=== PATIENT | female | born 1950 | race Two or more races ===

== ENCOUNTER 2024-04-12 11:04 | Inpatient (IN) | payer OTHER ==
[~2024-04-12] VITALS: Ht 142.2 cm; Wt 59.9 kg
[2024-04-12] VITALS (10 sets, daily range): BP systolic 139–182; BP diastolic 58–94; O2SAT 100
--- NOTE | 2024-04-12 11:06 | NUR ---
1106- SE RECIBE PACIENTE EN AMBULANCIA EN MADAN~IA DEL DR. ROMERO REDCTO POR SOB [place] DE [place]ONNY CIRUGIA ANTROSPCOPIA DE HOMBRO DERECHO POR LA DRA. CARLTON FERNANDEZ EN [facility]. SE UBICA EN CUBICULO 1 EN CAMA POSICION SEMISENTADA Y SE COLOCA MONITOR CARDIACO. NR MASK AL 100%.
[2024-04-12 11:24] LABS: BASE EXCESS -5.9 mmol/l; BICARBONATE 25.7 mmol/l (23-25); SaO2 94.8 %; Tco2 28.2 mmol/l
[2024-04-12 11:30] LABS: ABG PH 7.114 (7.35-7.45)
[2024-04-12 11:31] LABS: ABG pCO2 81.9 mmHg (35-45); allen test SATISFACTORY; o2 100 %; puncture site RADIAL RIGHT
[2024-04-12 11:38] LABS: HEMATOCRIT 34.9 % (36.0-45.00); HEMOGLOBIN 11.5 g/dL (12.0-15.00); MEAN CELL VOLUME 92.8 fL (80.00-100.00); MEAN CORPUSCULAR HEMOGLOBIN 30.5 pg (27.00-32.0); MEAN CORPUSCULAR HGB CONC 32.9 g/dl (32.0-36.0); PLATELET COUNT 346 K/uL (150-450); RED BLOOD COUNT 3.76 M/uL (4.00-6.00); RED CELL DISTRIBUTION WIDTH 15.7 % (11.5-14.5)
[2024-04-12] MEDS ORDERED: METOPROLOL SUCC25 MG (11:40)
[2024-04-12] MEDS ORDERED: SERTRALINE HCL50 MG (11:40)
[2024-04-12] MEDS ORDERED: SYNTHROID88 MCG (11:40)
[2024-04-12] MEDS ORDERED: OLOPATADINE HC2.5 ML (11:40)
[2024-04-12] MEDS ORDERED: ATORVASTATIN CA20 MG (11:41)
[2024-04-12] MEDS ORDERED: CLOPIDOGREL BIS75 MG (11:41)
[2024-04-12] MEDS ORDERED: NIFEDIPINE ER60 M1 (11:41)
[2024-04-12] MEDS ORDERED: IRBESARTAN300 MG (11:41)
[2024-04-12] MEDS ORDERED: HYDROCHLOROTHIA25 MG (11:41)
[2024-04-12] MEDS ORDERED: MAGNESIUM 400 MG (11:42)
[2024-04-12] MEDS ORDERED: IPRATROPIUM BROMIDE 0.5 MG/2.5 ML AMPUL.NEB IH SCH (11:58)
[2024-04-12] MEDS ORDERED: NITROGLYCERIN IN 5 % DEXTROSE 250 ML IV SCH (12:00)
[2024-04-12] MEDS ORDERED: 0.9 % SODIUM CHLORIDE 1,000 ML IV SCH (12:00)
[2024-04-12] MEDS ORDERED: FUROsemide 20 MG/2 ML VIAL IV SCH (12:01)
[2024-04-12] MEDS ORDERED: PANTOPRAZOLE SODIUM 40 MG/VIAL VIAL IV PUSH SCH (12:02)
[2024-04-12] MEDS ORDERED: ENOXAPARIN SODIUM 60 MG/0.6 ML SYRINGE SUBCUTANEO SCH (12:02)
[2024-04-12] MEDS ORDERED: BUDESONIDE 0.5 MG/2 ML AMPUL.NEB IH SCH (12:04)
[2024-04-12] MEDS ORDERED: METOPROLOL SUCCINATE 25 MG TAB.SR.24H PO SCH (12:04)
[2024-04-12 12:11] LABS: INR 1.05; PARTIAL THROMBOPLASTIN TIME 27.8 SECONDS (22.0-34.0); PROTHROMBIN TIME 11.4 SECONDS (9.0-11.5)
[2024-04-12] MEDS ORDERED: MORPHINE SULFATE 2 MG/ML SYRINGE IV PRN (12:15)
[2024-04-12] MEDS ORDERED: METOPROLOL SUCCINATE 50 MG TAB.SR.24H PO SCH (12:25)
[2024-04-12 12:59] LABS: ALBUMIN 3.7 gm/dL (3.4-5.0); BILIRUBIN TOTAL 0.23 mg/dL (0.3-1.2); CALCIUM 8.3 mg/dL (8.5-10.1); CKMB 1.3 NG/ML (0.5-3.6); CREATININE SERUM 1.21 mg/dL (0.55-1.02); GFR 43.26; GLOBULINA 3.2 G/DL (2.4-3.5); POTASSIUM 4.38 mEq/L (3.5-5.1); TOTAL PROTEIN 6.9 gm/dL (6.4-8.2)
[2024-04-12 13:00] LABS: ABG PH 7.259 (7.35-7.45); ABG PO2 102.1 mmHg (80-100); ABG pCO2 58.3 mmHg (35-45); BASE EXCESS -2.7 mmol/l; BICARBONATE 25.5 mmol/l (23-25); SaO2 96.5 %; Tco2 27.3 mmol/l
[2024-04-12] MEDS ORDERED: LEVALBUTEROL HCL 1.25 MG/3 ML SOLUTION IH SCH ×2 (13:00→18:00)
[2024-04-12 13:31] LABS: URINE APPEARANCE Clear; URINE BILIRRUBIN Negative (NEGATIVE); URINE BLOOD Negative; URINE COLOR Yellow; URINE GLUCOSE Negative (NEGATIVE); URINE KETONE Negative (NEGATIVE); URINE LEUKOCYTE Negative; URINE NITRATE Negative; URINE PROTEIN Negative (NEGATIVE); URINE UROBILINOGEN 0.2 E.U./dl
[2024-04-12 13:37] LABS: URINE BACTERIA 18.8 uL (0.0-1933); URINE EPITHELIAL CELLS 2.9 uL (0.0-38.8)
[2024-04-12 13:43] LABS: URINE CAST 1.37 uL (0.0-1.40); URINE RBC 1.5 uL (0.0-20.8); URINE WBC 0.7 uL (0.0-23.2)
[2024-04-12 14:03] LABS: allen test SATISFACTORY; o2 50 %; puncture site RADIAL LEFT
[2024-04-12 14:16] LABS: LDH 233 U/L (84-246); PHOSPHOKINASE CREATININE 352 U/L (26-192)
[2024-04-12] MEDS ORDERED: ENALAPRILAT DIHYDRATE 1.25 MG/ML VIAL IV SCH (17:00)
[2024-04-12] MEDS ORDERED: MORPHINE SULFATE 4 MG/ML CARTRIDGE IV PRN (18:45)
[2024-04-12 21:41] LABS: LDH 247 U/L (84-246); PHOSPHOKINASE CREATININE 416 U/L (26-192)
[2024-04-12] MEDS ORDERED: KETOROLAC TROMETHAMINE 30 MG VIAL IV ONE ×2 (22:15)
[2024-04-13] VITALS (19 sets, daily range): BP systolic 91–195; BP diastolic 46–75; O2SAT 15–100
[2024-04-13] MEDS ORDERED: FUROsemide 20 MG/2 ML VIAL IV SCH ×3 (05:00→21:00)
[2024-04-13] MEDS ORDERED: MORPHINE SULFATE 4 MG/ML CARTRIDGE IV PRN (05:09)
[2024-04-13] MEDS ORDERED: SODIUM CHLORIDE 0.45 % 1,000 ML IV SCH (05:15)
[2024-04-13] MEDS ORDERED: ENALAPRILAT DIHYDRATE 1.25 MG/ML VIAL IV SCH (06:00)
[2024-04-13] MEDS ORDERED: LEVOTHYROXINE SODIUM 88 MCG TABLET PO SCH (06:00)
[2024-04-13 06:16] LABS: ABG PH 7.429 (7.35-7.45); ABG pCO2 44.6 mmHg (35-45)
[2024-04-13 06:17] LABS: ABG PO2 64.6 mmHg (80-100); BASE EXCESS 3.9 mmol/l; BICARBONATE 28.9 mmol/l (23-25); SaO2 93.1 %; Tco2 30.3 mmol/l; o2 50 %
[2024-04-13 06:18] LABS: allen test SATISFACTORY; puncture site RADIAL RIGHT
[2024-04-13 06:26] LABS: HEMATOCRIT 32.8 % (36.0-45.00); HEMOGLOBIN 10.8 g/dL (12.0-15.00); MEAN CELL VOLUME 89.2 fL (80.00-100.00); MEAN CORPUSCULAR HEMOGLOBIN 29.4 pg (27.00-32.0); PLATELET COUNT 291 K/uL (150-450); RED BLOOD COUNT 3.67 M/uL (4.00-6.00); RED CELL DISTRIBUTION WIDTH 15.4 % (11.5-14.5)
[2024-04-13 06:50] LABS: URINE APPEARANCE Clear; URINE BILIRRUBIN Negative (NEGATIVE); URINE BLOOD Small; URINE COLOR Yellow; URINE GLUCOSE Negative (NEGATIVE); URINE KETONE Negative (NEGATIVE); URINE LEUKOCYTE Negative; URINE NITRATE Negative; URINE PROTEIN Negative (NEGATIVE); URINE RBC 72.6 uL (0.0-20.8); URINE UROBILINOGEN 0.2 E.U./dl; URINE WBC 12.1 uL (0.0-23.2)
[2024-04-13 06:55] LABS: URINE BACTERIA 3.7 uL (0.0-1933); URINE CAST 0.76 uL (0.0-1.40); URINE EPITHELIAL CELLS 1.2 uL (0.0-38.8)
[2024-04-13 07:04] LABS: LDH 313 U/L (84-246); PHOSPHOKINASE CREATININE 433 U/L (26-192)
[2024-04-13 07:09] LABS: TSH 0.721 uIU/mL (0.358-3.74)
[2024-04-13 07:21] LABS: ALBUMIN 3.8 gm/dL (3.4-5.0); ALKALINE PHOSPHATASE 96 U/L (50-136); ALT/SGPT 13 U/L (12-78); ANION GAP 10 (10.0-20.0); AST/SGOT 33 U/L (15-37); BILIRUBIN TOTAL 0.44 mg/dL (0.3-1.2); BILIRUBIN,CONJUGATED < 0.10 mg/dL (0.0-0.2); BILIRUBIN,UNCONJUGATED 0.34 mg/dL (0.0-0.6); BLOOD UREA NITROGEN 35 mg/dL (7-18); BUN CREA RATIO 33 (7.0-25.0); CALCIUM 8.8 mg/dL (8.5-10.1); CARBON DIOXIDE 31 mEq/L (21-32); CHLORIDE 103 mmol/L (98-107); CHOL HDL RATIO 2.3 (0-5.0); CHOLESTEROL 150 mg/dL (0-200); CREATININE SERUM 1.05 mg/dL (0.55-1.02); GFR 50.95; GLOBULINA 3.5 G/DL (2.4-3.5); GLUCOSE FASTING 124 mg/dL (65-100); HDL 64 mg/dl (40-60); LDL 68 mg/dl (0-130); OSMOLALITY SERUM 289 MOSM/KG (275-295); PHOSPHOROUS 5.1 mg/dL (2.5-4.9); POTASSIUM 4.44 mEq/L (3.5-5.1); SODIUM 140 mmol/L (136-145); T4 FREE 1.29 NG/ML (0.76-1.46); TOTAL PROTEIN 7.3 gm/dL (6.4-8.2); TRIGLYCERIDES 89 mg/dL (0-150); VLDL 17 (0-39)
[2024-04-13 07:24] LABS: C-REACTIVE PROTEIN 2.13 MG/DL (0.00-0.29)
[2024-04-13 08:31] LABS: INR 1.07; PARTIAL THROMBOPLASTIN TIME 29.1 SECONDS (22.0-34.0); PROTHROMBIN TIME 11.6 SECONDS (9.0-11.5)
[2024-04-13] MEDS ORDERED: IRBESARTAN 300 MG TABLET PO STA (08:38)
[2024-04-13] MEDS ORDERED: CLOPIDOGREL BISULFATE 75 MG TABLET PO STA (08:39)
[2024-04-13] MEDS ORDERED: ATORVASTATIN CALCIUM 40 MG TABLET PO SCH (09:00)
[2024-04-13 10:59] LABS: ABG pCO2 43.6 mmHg (35-45)
[2024-04-13 11:00] LABS: ABG PO2 151.2 mmHg (80-100); BASE EXCESS 3.8 mmol/l; BICARBONATE 28.6 mmol/l (23-25); SaO2 99.4 %; Tco2 29.9 mmol/l
[2024-04-13 11:01] LABS: allen test SATISFACTORY; o2 36 %; puncture site RADIAL RIGHT
[2024-04-14] VITALS (15 sets, daily range): BP systolic 135–179; BP diastolic 46–77; O2SAT 98–100
[2024-04-14 07:45] LABS: HEMATOCRIT 29.5 % (36.0-45.00); HEMOGLOBIN 9.8 g/dL (12.0-15.00); MEAN CORPUSCULAR HEMOGLOBIN 29.9 pg (27.00-32.0); MEAN CORPUSCULAR HGB CONC 33.2 g/dl (32.0-36.0); PLATELET COUNT 262 K/uL (150-450); RED BLOOD COUNT 3.28 M/uL (4.00-6.00); RED CELL DISTRIBUTION WIDTH 15.3 % (11.5-14.5)
[2024-04-14 08:09] LABS: ALBUMIN 3.4 gm/dL (3.4-5.0); BILIRUBIN TOTAL 0.39 mg/dL (0.3-1.2); CALCIUM 8.4 mg/dL (8.5-10.1); CREATININE SERUM 1.07 mg/dL (0.55-1.02); GFR 49.86; GLOBULINA 3.2 G/DL (2.4-3.5); MAGNESIUM 2.4 mg/dL (1.8-2.4); PHOSPHOROUS 4.2 mg/dL (2.5-4.9); POTASSIUM 4.15 mEq/L (3.5-5.1); TOTAL PROTEIN 6.6 gm/dL (6.4-8.2)
[2024-04-14] MEDS ORDERED: FUROsemide 20 MG/2 ML VIAL IV SCH (09:00)
[2024-04-14] MEDS ORDERED: IRBESARTAN 300 MG TABLET PO SCH (09:00)
[2024-04-14] MEDS ORDERED: CLOPIDOGREL BISULFATE 75 MG TABLET PO SCH (09:00)
[2024-04-14] MEDS ORDERED: ENOXAPARIN SODIUM 40 MG/0.4 ML SYRINGE SUBCUTANEO SCH (09:00)
[2024-04-14 09:31] LABS: URINE PROT QUANT 24HR 14.5 MG/DL
[2024-04-14 09:36] LABS: URINE PROT QUANT 24 HR 253.75 MG/24HR (42-225)
[2024-04-14] MEDS ORDERED: AMLODIPINE BESYLATE 5 MG TABLET PO SCH (17:00)
[2024-04-14] MEDS ORDERED: OxyCODONE HCL/APAP UD (PERCOCET) PO PRN (21:45)
[2024-04-15 00:58] VITALS: BP 152/70
[2024-04-15 08:34] VITALS: BP 160/72; O2SAT 98
[2024-04-15] MEDS ORDERED: LEVALBUTEROL HCL 1.25 MG/3 ML SOLUTION IH SCH (09:00)
[2024-04-15] MEDS ORDERED: ISOSORBIDE MONONITRATE 30 MG TABLET PO NR (11:10)
[2024-04-15 12:44] VITALS: BP 159/71
[2024-04-15] MEDS ORDERED: hydrALAZINE HCL 25 MG TABLET PO SCH (17:00)
[2024-04-15] MEDS ORDERED: AMLODIPINE BESYLATE 5 MG TABLET PO SCH (17:00)
[2024-04-15 17:15] VITALS: BP 160/75; O2SAT 98
[2024-04-15 21:27] VITALS: BP 145/67; O2SAT 98
[2024-04-16 01:08] VITALS: BP 165/75
[2024-04-16 08:17] VITALS: BP 163/66; O2SAT 97
[2024-04-16] MEDS ORDERED: FUROsemide 20 MG TABLET PO SCH (09:00)
[2024-04-16] MEDS ORDERED: ISOSORBIDE MONONITRATE 30 MG TABLET PO SCH (09:00)
[2024-04-16 17:03] VITALS: BP 124/65
[2024-04-17 00:34] VITALS: BP 151/66; O2SAT 99
[2024-04-17 08:13] VITALS: BP 157/68; O2SAT 97
[2024-04-17 15:07] LABS: HEMATOCRIT 33.3 % (36.0-45.00); MEAN CELL VOLUME 90.1 fL (80.00-100.00); MEAN CORPUSCULAR HEMOGLOBIN 29.6 pg (27.00-32.0); MEAN CORPUSCULAR HGB CONC 32.9 g/dl (32.0-36.0); PLATELET COUNT 335 K/uL (150-450); RED CELL DISTRIBUTION WIDTH 15.4 % (11.5-14.5)
[2024-04-17 15:55] LABS: ALBUMIN 3.5 gm/dL (3.4-5.0); BILIRUBIN TOTAL 0.64 mg/dL (0.3-1.2); CALCIUM 8.9 mg/dL (8.5-10.1); CREATININE SERUM 1.04 mg/dL (0.55-1.02); GFR 51.52; GLOBULINA 3.3 G/DL (2.4-3.5); POTASSIUM 5.11 mEq/L (3.5-5.1); TOTAL PROTEIN 6.8 gm/dL (6.4-8.2)
[2024-04-17 16:32] VITALS: BP 151/64
[2024-04-17] MEDS ORDERED: OxyCODONE HCL/APAP UD (PERCOCET) PO PRN (22:00)
[2024-04-18 01:19] VITALS: BP 147/63; O2SAT 100
[2024-04-18 08:57] VITALS: BP 155/63; O2SAT 97
[2024-04-18] MEDS ORDERED: CLOPIDOGREL BIS75 MG PO (13:57)
[2024-04-18] MEDS ORDERED: AVAPRO300 MG PO (13:58)
[2024-04-18] MEDS ORDERED: LIPITOR40 M1 PO (13:58)
[2024-04-18] MEDS ORDERED: AMLODIPINE BESYL5 MG PO (13:58)
[2024-04-18] MEDS ORDERED: ISOSORBIDE MONO30 MG PO (13:59)
[2024-04-18] MEDS ORDERED: TOPROL XL50 M1 PO (13:59)
[2024-04-18] MEDS ORDERED: FUROSEMIDE20 MG PO (14:00)
[2024-04-18] MEDS ORDERED: LEVOTHYROXINE88 MCG PO (14:00)
[2024-04-18] MEDS ORDERED: HYDRALAZINE HCL25 MG PO (14:00)
== END 2024-04-18 15:41 | disposition home or self-care (01) | DRG 189 ==
LOC: ER 11:04 → ICU 13:21 → MEDJ 04-14 14:50
PROVIDERS: Internal Medicine; ADMIT Internal Medicine; ATTEND Internal Medicine
PROC: 5A09357 Assistance with Respiratory Ventilation, Less than 24 Consecutive Hours, Continuous Positive Airway Pressure (ICD-10-PCS; principal; 2024-04-12)
PROC: 4A12X4Z Monitoring of Cardiac Electrical Activity, External Approach (ICD-10-PCS; 2024-04-12)
PROC: 3E0F7GC Introduction of Other Therapeutic Substance into Respiratory Tract, Via Natural or Artificial Opening (ICD-10-PCS; 2024-04-12)
PROC: B246ZZZ Ultrasonography of Right and Left Heart (ICD-10-PCS; 2024-04-12)
PROC: B246ZZZ Ultrasonography of Right and Left Heart (ICD-10-PCS; 2024-04-17)
DX: J95.821 Acute postprocedural respiratory failure (principal); J81.0 Acute pulmonary edema; I16.9 Hypertensive crisis, unspecified; I34.0 Nonrheumatic mitral (valve) insufficiency; E87.70 Fluid overload, unspecified; D72.829 Elevated white blood cell count, unspecified; I11.9 Hypertensive heart disease without heart failure; G47.33 Obstructive sleep apnea (adult) (pediatric); E03.9 Hypothyroidism, unspecified; E78.5 Hyperlipidemia, unspecified